=== PATIENT | female | born 1995 | race Caucasian/White ===

== ENCOUNTER 2016-07-27 15:07 | Emergency (ER) | payer OTHER ==
--- NOTE | 2016-07-27 15:51 | CPEKG ---
Heart Rate: 56 RR Interval: 1071 P-R Interval: 140 QRSD Interval: 82 QT Interval: 408 QTC Interval: 394 P Chester: 69 QRS Chester: -1 T Wave Chester: 41 EKG Severity - NORMAL ECG - EKG Impression: SINUS RHYTHM Electronically Signed By: Fabrizio Kulkarni 27-Jul-2016 16:00:46
[2016-07-27 15:53] LABS: % IMMATURE GRANULYOCYTES 0.2 % (0.0-1.1); ABSOLUTE IMMATURE GRANULOCYTES 0.02 10^3/uL (0.00-0.10); ADD DIFF? NO; ADD MORPH? NO; ADD SCAN? NO; ATYPICAL LYMPHOCYTE FLAG 10 (0-99); FRAGMENT RBC FLAG 0 (0-99); HEMATOCRIT 42.3 % (38.0-47.0); HEMOGLOBIN 14.5 g/dL (12.6-16.3); LEFT SHIFT FLG 0 (0-99); LIPEMIA HEMOLYSIS FLAG 90 (0-99); MEAN CELL HEMOGLOBIN 30.1 pg (27.9-34.1); MEAN CELL HEMOGLOBIN CONCENTR. 34.3 g/dL (32.4-36.7); MEAN CELL VOLUME 87.8 fL (81.5-99.8); MEAN PLATELET VOLUME 9.9 fL (8.7-11.7); PLATELET CLUMPS FLAG 30 (0-99); PLATELET COUNT 290 10^3/uL (150-400); RED BLOOD CELL COUNT 4.82 10^6/uL (4.18-5.33); RED CELL DISTRIBUTION WIDTH 13.2 % (11.5-15.2)
--- NOTE | 2016-07-27 15:54 | EDPHY ---
H & P Time Seen by Provider: 07/27/16 15:22 HPI/ROS: CHIEF COMPLAINT: Right-sided chest pain HISTORY OF PRESENT ILLNESS: 21-year-old female presents to the emergency department complaining of right-sided chest pain intermittently for the last 3 weeks. The patient denies any known trauma or injury. She has pain especially with deep breathing. She denies feeling short of breath but again has pain with breathing. Denies back pain. The patient occasionally smokes cigarettes. She is on oral contraceptive pills. Her last menstrual period is about 3 weeks ago. She is unsure if she is . Denies any other abdominal pain. She has not taken anything for the pain. She feels that the pain is getting worse knows what prompted her to come to the emergency department. Patient does report recent road trip REVIEW OF SYSTEMS: Constitutional: No fever, no chills. Eyes: No double or blurry vision. ENT: No sore throat. Respiratory: No cough, no shortness of breath. Cardiac: Right-sided chest pain as above. Gastrointestinal: No abdominal pain, vomiting or diarrhea. Genitourinary: No dysuria. Musculoskeletal: No neck or back pain. Skin: No rashes. Neurological: No headache. Past Medical/Surgical History: "Digestive problems" Social History: Single Smoking Status: Current every day smoker Physical Exam: General Appearance: Alert, no distress. Heart rate 84, 96% on room air. Eyes: Pupils equal and round. Extraocular motions are all intact. ENT: Mouth: Mucous membranes moist. Respiratory: No wheezing, rhonchi, or rales, lungs are clear to auscultation. Mild pain with palpation to the right anterior aspect of the chest. Cardiovascular: Regular rate and rhythm. Gastrointestinal: Abdomen is soft and nontender, no masses, no rebound or guarding, bowel sounds normal. Neurological: Alert and oriented x 3, cranial nerves II through XII grossly intact Skin: Warm and dry, no rashes. Musculoskeletal: Nontender to palpate along the cervical, thoracic or lumbar spine. Neck is supple. Extremities: Full range of motion and no peripheral edema. Psychiatric: Patient is oriented X 3, there is no agitation. Constitutional: Initial Vital Signs Temperature (C) 36.8 C 07/27/16 15:10 Heart Rate 84 07/27/16 15:10 Respiratory Rate 18 07/27/16 15:10 Blood Pressure 114/75 07/27/16 15:10 O2 Sat (%) 96 07/27/16 15:10 O2 Delivery Mode Room Air Allergies/Adverse Reactions: No Known Allergies Allergy (Verified 07/27/16 15:20) Home Medications: Medication Instructions Recorded Albuterol Sulfate [Proventil Hfa] 6.7 gm IH PRN 07/17/15 Control Pills 07/17/15 Medical Decision Making - Diagnostics Imaging: Imaging Impressions Chest X-Ray 07/27/16 16:52 Impression: Mild peribronchial thickening suggesting airways disease/bronchitis. ED Course/Re-evaluation: 21-year-old female presents to the emergency department with right-sided chest pain. This has been present for 3 weeks. She does not abuse any cocaine or heroin. She does smoke marijuana occasionally. She does smoke cigarettes and does take control pills. I was concerned about possible pulmonary embolism. However the patient is not tachycardic. Her O2 saturation is normal. She has no recent surgery. Chest x-rays unremarkable. D-dimer is normal. Patient was given 30 mg of Toradol IV for her pain. Case was discussed with Dr. Fabrizio Kulkarni, secondary supervising physician, who agrees with did not directly evaluate the patient but agrees with treatment and plan. Patient was feeling little better after the Toradol. She still had pain especially when she moves her trunk especially laterally bending to the left. I explained to the patient that all of her laboratory studies were normal. Her chest x-rays unremarkable. I did offer CT imaging of the chest to evaluate for pulmonary embolism and explained the radiation exposure the patient declined. I think this patient likely does not have a pulmonary embolism. The patient does have chronic GI problems and was requesting GI referral. Differential Diagnosis: Chest pain including but not limited to myocardial ischemia, pulmonary embolus, chest wall pain, pleural inflammation and pulmonary infectious causes. - Data Points Laboratory Results: Laboratory Results 07/27/16 15:43 07/27/16 15:43 07/27/16 07/27/16 07/27/16 15:43 15:43 15:43 WBC RBC Hgb Hct MCV MCH MCHC RDW Plt Count MPV Neut % (Auto) Lymph % (Auto) [place] % (Auto) Eos % (Auto) Baso % (Auto) Nucleat RBC Rel Count Absolute Neuts (auto) Absolute Lymphs (auto) Absolute Monos (auto) Absolute Eos (auto) Absolute Basos (auto) Absolute Nucleated RBC Immature Gran % Immature Gran # D-Dimer < 0.27 ug/mLFEU ug/mLFEU (0.00-0.50) Sodium 137 mEq/L mEq/L (134-144) Potassium 3.9 mEq/L mEq/L (3.5-5.2) Chloride 104 mEq/L mEq/L (97-110) Carbon Dioxide 23 mEq/l mEq/l (22-31) Anion Gap 10 mEq/L mEq/L (8-16) BUN 8 mg/dL mg/dL (7-23) Creatinine 0.7 mg/dL mg/dL (0.6-1.0) Estimated GFR > 60 Glucose 84 mg/dL mg/dL (70-100) Calcium 9.4 mg/dL mg/dL (8.5-10.4) Total Bilirubin 0.8 mg/dL mg/dL (0.1-1.4) Conjugated Bilirubin 0.4 mg/dL mg/dL (0.0-0.5) Unconjugated Bilirubin 0.4 mg/dL mg/dL (0.0-1.1) AST 29 IU/L IU/L (14-46) ALT 30 IU/L IU/L (9-52) Alkaline Phosphatase 44 IU/L IU/L (38-126) Total Protein 7.9 g/dL g/dL (6.3-8.2) Albumin 4.5 g/dL g/dL (3.5-5.0) Beta HCG, Qual NEGATIVE 07/27/16 15:43 WBC 8.99 10^3/uL 10^3/uL (3.80-9.50) RBC 4.82 10^6/uL 10^6/uL (4.18-5.33) Hgb 14.5 g/dL g/dL (12.6-16.3) Hct 42.3 % % (38.0-47.0) MCV 87.8 fL fL (81.5-99.8) MCH 30.1 pg pg (27.9-34.1) MCHC 34.3 g/dL g/dL (32.4-36.7) RDW 13.2 % % (11.5-15.2) Plt Count 290 10^3/uL 10^3/uL (150-400) MPV 9.9 fL fL (8.7-11.7) Neut % (Auto) 66.9 % % (39.3-74.2) Lymph % (Auto) 23.0 % % (15.0-45.0) [place] % (Auto) 8.1 % % (4.5-13.0) Eos % (Auto) 1.0 % % (0.6-7.6) Baso % (Auto) 0.8 % % (0.3-1.7) Nucleat RBC Rel Count 0.0 % % (0.0-0.2) Absolute Neuts (auto) 6.01 10^3/uL 10^3/uL (1.70-6.50) Absolute Lymphs (auto) 2.07 10^3/uL 10^3/uL (1.00-3.00) Absolute Monos (auto) 0.73 10^3/uL 10^3/uL (0.30-0.80) Absolute Eos (auto) 0.09 10^3/uL 10^3/uL (0.03-0.40) Absolute Basos (auto) 0.07 10^3/uL 10^3/uL (0.02-0.10) Absolute Nucleated RBC 0.00 10^3/uL 10^3/uL (0-0.01) Immature Gran % 0.2 % % (0.0-1.1) Immature Gran # 0.02 10^3/uL 10^3/uL (0.00-0.10) D-Dimer Sodium Potassium Chloride Carbon Dioxide Anion Gap BUN Creatinine Estimated GFR Glucose Calcium Total Bilirubin Conjugated Bilirubin Unconjugated Bilirubin AST ALT Alkaline Phosphatase Total Protein Albumin Beta HCG, Qual Medications Given: Discontinued Medications Ketorolac Tromethamine (Toradol) 30 mg IVP EDNOW ONE Stop: 07/27/16 16:15 Last Admin: 07/27/16 16:19 Dose: 30 mg Departure - Departure Disposition: Home, Routine, Self-Care Clinical Impression: Right-sided chest pain Condition: Good Instructions: Chest Wall Pain (ED) Additional Instructions: Ibuprofen 600 mg every 8 hours as needed for pain. Your given Toradol in the emergency department and you should not take any additional ibuprofen tonight. Return if you feel acutely short of breath or if you feel worse in any way. Referrals: Charlette Jorgensen MD [Medical Doctor] - 1-2 days without fail (Primary care provider vice president of consulting services) Angy Modi MD [Medical Doctor] - As per Instructions ( [facility] on-call)
[2016-07-27 16:00] LABS: ALANINE AMINOTRANSFERASE 30 IU/L (9-52); ALBUMIN 4.5 g/dL (3.5-5.0); ALKALINE PHOSPHATASE 44 IU/L (38-126); ANION GAP 10 mEq/L (8-16); ASPARTATE AMINOTRANSFERASE 29 IU/L (14-46); BILIRUBIN,TOTAL 0.8 mg/dL (0.1-1.4); BILIRUBIN-CONJUGATED 0.4 mg/dL (0.0-0.5); BILIRUBIN-UNCONJUGATED 0.4 mg/dL (0.0-1.1); CALCIUM 9.4 mg/dL (8.5-10.4); CARBON DIOXIDE 23 mEq/l (22-31); CHLORIDE 104 mEq/L (97-110); CREATININE 0.7 mg/dL (0.6-1.0); GLOMERULAR FILTRATION RATE > 60; GLUCOSE 84 mg/dL (70-100); POTASSIUM 3.9 mEq/L (3.5-5.2); SODIUM 137 mEq/L (134-144); TOTAL PROTEIN 7.9 g/dL (6.3-8.2)
[2016-07-27] MEDS ORDERED: KETOROLAC 30 MG/1 ML SDV IVP ONE (16:14)
[2016-07-27 16:43] VITALS: RESP 16; O2SAT 98
[2016-07-27 18:14] VITALS: BP 108/76; PULSE 60; TEMP 96.8
== END 2016-07-27 18:14 | disposition home or self-care (01) ==
DX: R07.9 Chest pain, unspecified (principal); F17.200 Nicotine dependence, unspecified, uncomplicated
CPT/HCPCS: 96374; J1885

== ENCOUNTER 2017-02-23 09:21 | Emergency (ER) | payer OTHER ==
[2017-02-23 09:32] VITALS: RESP 16; TEMP 98.6
--- NOTE | 2017-02-23 10:14 | EDPHY ---
H & P Time Seen by Provider: 02/23/17 09:40 HPI/ROS: CHIEF COMPLAINT: Right thumb pain HISTORY OF PRESENT ILLNESS: Patient is a 21-year-old female who presents emergency department with right thumb pain. She is not entirely sure when she sustained injury. She states she is doing dance performance is. Last night she performed dance performance and when she does lips and puts her hand on the ground. After performing she had severe pain at the base of her right thumb. Pain has persisted. There is now swelling. No numbness or tingling. REVIEW OF SYSTEMS: My complete review of systems is negative except as mentioned in the HPI. Past Medical/Surgical History: Noncontributory Noncontributory Social history: The patient smokes Smoking Status: Current some day smoker Physical Exam: Vitals noted General Appearance: Alert and no distress. Head: Pupils equal. Normal. Respiratory: No respiratory distress. Cardiac: regular rate and rhythm. Extremities: patient has swelling at the base of her right thumb. There is moderate tenderness palpation at the base of right 1st metacarpal. No laceration skin breakdown. No tenting. Neurovascular intact distally. No wrist tenderness. No forearm or radial head tenderness. Skin: No rashes or lesions. Neuro: Alert. Normal mood and affect. Constitutional: Initial Vital Signs Temperature (C) 37.0 C 02/23/17 09:30 Heart Rate 79 02/23/17 09:30 Respiratory Rate 16 02/23/17 09:30 Blood Pressure 95/62 L 02/23/17 09:30 O2 Sat (%) 98 02/23/17 09:30 O2 Delivery Mode Room Air Allergies/Adverse Reactions: No Known Allergies Allergy (Verified 07/27/16 15:20) Home Medications: Medication Instructions Recorded Albuterol Sulfate [Proventil Hfa] 6.7 gm IH PRN 07/17/15 Control Pills 07/17/15 Medical Decision Making - Diagnostics Imaging Results: Imaging Impressions Hand X-Ray 02/23/17 09:36 Impression: Obliquely oriented mildly displaced fracture through the base of the right first metacarpal, with intra-articular extension. ED Course/Re-evaluation: In the emergency department an x-ray was ordered. Right hand x-ray: Please refer the dictated report. There is a fracture of the base of right 1st metacarpal. I discussed the result with the patient. I answered all her questions. An Ortho Glass thumb spica splint was placed. Post splint placement patient was neurovascular intact distally. The patient was told to keep her splint in place until follow-up with Hand. She is given warnings prior to leaving. Differential Diagnosis: My differential includes but is not limited to fracture, dislocation, sprain, strain, contusion, gout Departure - Departure Disposition: Home, Routine, Self-Care Clinical Impression: Thumb fracture Qualifiers: Encounter type: initial encounter Fracture type: closed Phalanx: proximal Fracture alignment: displaced Laterality: right Qualified Code(s): S62.511A - Displaced fracture of proximal phalanx of right thumb, initial encounter for closed fracture Condition: Good Instructions: Thumb Fracture (ED) Additional Instructions: You broke the base severe right thumb. Keep your splint in place until you follow up with the hand surgeon. Removing or splinting may cause you to have delayed healing and complications. Referrals: Alva Mojica MD [Medical Doctor] - 2-3 days without fail
[2017-02-23 10:32] VITALS: BP 121/70; PULSE 68; O2SAT 96
== END 2017-02-23 10:31 | disposition home or self-care (01) ==
PROC: 2W3CX1Z Immobilization of Right Lower Arm using Splint (ICD-10-PCS; principal; 2017-02-23)
DX: S62.511A Displaced fracture of proximal phalanx of right thumb, initial encounter for closed fracture (principal); F17.200 Nicotine dependence, unspecified, uncomplicated; W22.8XXA Striking against or struck by other objects, initial encounter; Y93.41 Activity, dancing
CPT/HCPCS: A4565

== ENCOUNTER → 2017-02-27 | Outpatient (CLI) | payer OTHER | LOC: CIMAGING 13:22 | PROVIDERS: ATTEND Physician Assistant | DX: S62.231A Other displaced fracture of base of first metacarpal bone, right hand, initial encounter for closed fracture (principal) | CPT/HCPCS: 73200-PO ==

== ENCOUNTER 2017-03-07 05:51 | Day surgery (SDC) | payer OTHER ==
--- NOTE | 2017-02-28 22:19 | GHP ---
[f rep st] PREOP HISTORY AND PHYSICAL CURRENT COMPLAINT: Right thumb pain. HISTORY OF PRESENT ILLNESS: The patient is a 21-year-old female who was at a dance performance when she began to feel pain into her right thumb. She does not remember any specific episode of trauma wh ile she was dancing. Pain gradually became worse. She went to the emergency room, was diagnosed wit h a displaced fracture of the base of 1st metacarpal. She is here for fixation. ALLERGIES: She has no drug allergies. CURRENT MEDICATIONS: Include lorazepam, control, sertraline, trazodone, and valacyclovir. PRIOR MEDICAL HISTORY: There are no prior medical problems. No prior surgeries. SOCIAL HISTORY: She does not list any smoking or alcohol intake. PHYSICAL EXAMINATION: HEENT: The pupils are equal, round, and reactive to light. CHEST: Clear to auscultation. HEART: Regular rate and rhythm. ABDOMEN: Soft, nontender. EXTREMITIES: Examinatio n of the right thumb reveals her to be neurologically intact, both EPL and FPL remaining intact. She is tender at the base of the 1st metacarpal. CT scan shows a displaced intra-articular fracture at the base of the 1st metacarpal. ASSESSMENT AND PLAN: Patient is status post a white thumb Klein fracture. She needs to be brought to the operating room, to undergo definitive fixation. /[id number]/MODL
[2017-03-07] MEDS ORDERED: ceFAZolin 2 GM/SWFI 2 GM/20 ML SYR IVP ONE (06:00)
[2017-03-07] MEDS ORDERED: LR 1,000 ML IV ONE (06:22)
[2017-03-07] MEDS ORDERED: LIDOCAINE 1% 2 ML INJ ID PRN (06:22)
[2017-03-07] MEDS ORDERED: BUPIVACAINE 0.5% 30 ML SDV ONE (06:29)
[2017-03-07 06:42] VITALS: PULSE 64
[2017-03-07] MEDS ORDERED: MIDAZOLAM 2 MG/2 ML VIAL IVP ONE (07:04)
--- NOTE | 2017-03-07 07:04 | PDANEPAE ---
ANE History of Present Illness 21 year old female presents for right thumb base ORIF. ANE Past Medical History - Cardiovascular History Hx Hypertension: No Hx Arrhythmias: No Hx Chest Pain: No Hx Coronary Artery / Peripheral Vascular Disease: No Hx CHF / Valvular Disease: No Hx Palpitations: No - Pulmonary History Hx COPD: No Hx Asthma/Reactive Airway Disease: No Hx Recent Upper Respiratory Infection: No Hx Oxygen in Use at Home: No Hx Sleep Apnea: No Sleep Apnea Screening Result - Last Documented: Negative Pulmonary History Comment: mild asthma - Neurologic History Hx Cerebrovascular Accident: No Hx Seizures: No Hx Dementia: No - Endocrine History Hx Diabetes: No Hypothyroid: No Hyperthyroid: No - Renal History Hx Renal Disorders: No - Liver History Hx Hepatic Disorders: No - Neurological & Psychiatric Hx Hx Neurological and Psychiatric Disorders: Yes Neurological / Psychiatric History Comment: depression,anxiety - Cancer History Hx Cancer: No - Congenital Disorder History Hx Congenital Disorders: No - GI History Hx Gastrointestinal Disorders: Yes Gastrointestinal History Comment: IBS - Other Health History Other Health History: right thumb Frx after dancing - Surgical History Prior Surgeries: appendectomy,. pilonidal cystectomy. wisdom teeth extraction ANE Review of Systems Review of systems is: negative Review of Systems: - Exercise capacity Exercise capacity: >=4 METS METS (RN): 6 METS ANE Patient History - Allergies Allergies/Adverse Reactions: No Known Allergies Allergy (Verified 07/27/16 15:20) - Home Medications Home medications: home medication list seen and reviewed Home Medications: Albuterol Sulfate [Proventil Hfa] 6.7 gm IH PRN 07/17/15 [Last Taken 12/05/16] HYDROCODONE BIT/ACETAMINOPHEN PRN PRN 03/05/17 [Last Taken 03/07/17 04:00] Zoloft 50mg (*) 03/05/17 [Last Taken 03/06/17 14:00] - NPO status NPO Status: no food or drink >8 hours NPO Since - Liquids (Date): 03/06/17 NPO Since - Liquids (Time): 23:00 NPO Since - Solids (Date): 03/06/17 NPO Since - Solids (Time): 23:00 - Anes Hx Anes Hx: no prior problems - Smoking Hx Smoking Status: Current some day smoker Marijuana use: Yes - Alcohol Use Alcohol Use: Occasionally - Family Anes Hx Family Hx Anesthesia Complications: "paternal grandmother from allergic reaction to anesthesia" ANE Labs/Vital Signs - Vital Signs Vital Signs: reviewed preoperatively; see RN documention for details Blood Pressure: 111/61 Heart Rate: 64 Respiratory Rate: 16 O2 Sat (%): 95 Height: 162.56 cm Weight: 58.967 kg ANE Physical Exam - Airway Neck exam: FROM Mallampati Score: Class 2 Mouth exam: normal dental/mouth exam - Pulmonary Pulmonary: no respiratory distress - Cardiovascular Cardiovascular: regular rate and rhythym - ASA Status ASA Status: II ANE Anesthesia Plan Anesthesia Plan: general endotracheal anesthesia, GA w LMA Total IV Anesthesia: No
[2017-03-07] MEDS ORDERED: fentaNYL 100 MCG/2 ML INJ ONE ×4 (07:12→10:57)
[2017-03-07] MEDS ORDERED: PROPOFOL/EMULSION 500 MG/50 ML BOTTLE IV ONE ×3 (07:12→07:47)
[2017-03-07] MEDS ORDERED: ONDANSETRON 4 MG/2 ML VIAL ONE (07:18)
--- NOTE | 2017-03-07 07:27 | PDHPUP ---
History & Physical Update H&P update statement: This history and physical update is based on an assessment of the patient which was completed after admission or registration (within 24 hours), but prior to the surgery/procedure. H&P update: H&P reviewed & patient examined, no change in patient's condition since H&P completed
[2017-03-07] MEDS ORDERED: LR 500 ML IV PRN (07:50)
[2017-03-07] MEDS ORDERED: NALOXONE HCL 0.4 MG/ML INJ IVP PRN (07:50)
[2017-03-07] MEDS ORDERED: ONDANSETRON 4 MG/2 ML VIAL IVP PRN (07:50)
[2017-03-07] MEDS ORDERED: PROPOFOL 200 MG/20 ML VIAL ONE (08:44)
[2017-03-07] MEDS ORDERED: ACETAMINOPHEN 325 MG TAB PO PRN (08:57)
[2017-03-07] MEDS ORDERED: HYDROCODONE/APAP 5/325 TAB PO PRN (08:57)
--- NOTE | 2017-03-07 08:57 | POSTOPPROG ---
Post Op Note Date of Operation: 03/07/17 Surgeon: Alva Mojica Anesthesia: LMA Pre-op Diagnosis: r thumb fx Procedure: orif r thumb w/ fluoro Inf/Abcess present in the surg proc area at time of surgery?: No Depth: Deep Incisional (Fascial) EBL: Minimal
[2017-03-07] MEDS: fentaNYL 100 MCG/2 ML INJ IVP PRN ×6 (09:05→11:34)
[2017-03-07] MEDS ORDERED: OXYCODONE/APAP 5/325 TAB ONE ×2 (09:46→10:11)
[2017-03-07 09:52] VITALS: RESP 14
--- NOTE | 2017-03-07 09:53 | GOP ---
[f rep st] OPERATIVE REPORT DATE OF OPERATION: 03/07/2017 SURGEON: Alva Mojica MD ANESTHESIA: LMA. PREOPERATIVE DIAGNOSIS: Right thumb fracture. POSTOPERATIVE DIAGNOSIS: Right thumb fracture. PROCEDURE PERFORMED: Open reduction, internal fixation of right thumb with use of fluoroscopy. FINDINGS: INDICATIONS: This 21-year-old female was in a dance performance when she noticed that her thumb star renetta to cause more and more pain. She was seen in the emergency room, diagnosed with a thumb fracture . Due to the location of the fracture, it was difficult to get a good idea of how much displacement there was. She therefore underwent a CT showing significant involvement of the intra-articular surfa ce. It was therefore decided to do operative treatment. DESCRIPTION OF PROCEDURE: Patient brought to the operating room after the right side had been identi fied as the correct side by the patient, nurse, and physician. Once in the operating room, she was p laced under general anesthesia using LMA. Once asleep, a tourniquet was placed around the upper port ion of the right forearm with right upper extremity sterilely prepped and draped in usual fashion usi ng GSI solution. Once prepped and draped, attempt was done for closed reduction with fluoroscopy. A lthough reduction could get close, re-creating the articular surface was unsuccessful. It was theref ore decided to open it. Therefore, limb was exsanguinated, tourniquet inflated to 250 mmHg. Incision was made along the radial border of the CMC joint, lifting up the thenar musculature, exposi ng the joint itself. Blunt dissection was carried around the base of the metacarpal. The fracture w as able to be isolated. Hematoma was removed from around the fracture site, and a dental pick was us ed to close the fracture put in place. A 2 mm K-wire was then placed across the fracture in order to hold it in position. A 3.5 mm screw was then placed perpendicular to the fracture site and parallel to the articular surface in a lag fashion in order to gain compression across the fracture site. On ce the screw was in place, prior to it being tightened, the K-wire was removed in order to allow comp ression across the actual fracture site. Once this was achieved, fluoroscopy was again used to ensur e proper positioning, noticed to have good closure of the actual fracture site as well as good length , with at least 2 threads of the screw protruding from the far side of the fracture. Two more 1.3 mm screws were placed across the fracture site with their positions checked under fluoroscopy, noted to have good closure of the fracture site as well as good position of the screws. Fluoroscopy was used in multiple positions in order to ensure proper reduction of the articular surfa ce, as well as placement of the screws. Once this was ensured, the wound was thoroughly irrigated wi th antibiotic solution and was closed in layers with 2-0 Vicryl suture for the fascial and subcutaneo us layers and 3-0 nylon suture in a running subcuticular stitch for the skin. 4 cc of Marcaine witho ut epinephrine was infused around the actual surgery site. The wound was then dressed with Steri-Str ips, Xeroform, 4 x 4's, and wrapped in Webril. The arm was completely undraped in the operating room , tourniquet removed from the forearm. She had a short-arm thumb spica splint using plaster placed a round the thumb. She was then woken up, extubated, transferred onto a stretcher, and sent to recover y room in good condition. TOURNIQUET TIME: 37 minutes. /[id number]/MODL
[2017-03-07] MEDS: OXYCODONE/APAP 5/325 TAB PO PRN ×2 (10:09→10:12)
[2017-03-07 13:59] VITALS: TEMP 98.1
[2017-03-07] MEDS ORDERED: OXYCODONE/APAP 5/325 TAB PO PRN (14:27)
[2017-03-07 15:47] VITALS: BP 102/61; O2SAT 95
--- NOTE | 2017-03-07 17:31 | POSTANESTH ---
Post Anesthetic Evaluation Cardiovascular Status: Normal, Stable, Similar to Pre-Op Cond Respiratory Status: Normal, Stable, Similar to Pre-op Cond. Level of Consciousness/Mental Status: Can Participate in Eval, Alert and Oriented Pain Control: Adequate, Prn Tx Ordered Nausea/Vomiting Control: Adequate, Prn Tx Ordered Complications Possibly Related to Anesthesia: None Noted (Patient remained in PACU for several hours requiring pain management. Ultimately pain reached managable level and patient discharged home.)
== END 2017-03-07 16:35 | disposition home or self-care (01) ==
LOC: FSGY 05:51
PROVIDERS: ATTEND Orthopaedic Surgery
DX: S62.521A Displaced fracture of distal phalanx of right thumb, initial encounter for closed fracture (principal); X58.XXXA Exposure to other specified factors, initial encounter; Y93.41 Activity, dancing
CPT/HCPCS: C1713; J0690; J2250; J2405; J2704; J3010

== ENCOUNTER → 2017-10-01 | Outpatient (CLI) | payer OTHER | LOC: FIMAGING 18:47 | PROVIDERS: ATTEND Orthopaedic Surgery | DX: S62.234D Other nondisplaced fracture of base of first metacarpal bone, right hand, subsequent encounter for fracture with routine healing (principal) ==

== ENCOUNTER → 2017-10-03 | Outpatient (CLI) | payer OTHER | LOC: FIMAGING 17:58 | PROVIDERS: ATTEND Orthopaedic Surgery | DX: S62.234D Other nondisplaced fracture of base of first metacarpal bone, right hand, subsequent encounter for fracture with routine healing (principal); R60.9 Edema, unspecified ==